=== PATIENT | male | born 1930 | race Caucasian/White ===

== ENCOUNTER → 2016-07-21 | Outpatient (CLI) | payer MEDICARE, OTHER ==
[~2016-07-21] MED LIST: ALEN70TA3 PO; CLOP75TA22 PO; DRON400T PO; DUTA0.5C PO; LEVO50TA PO; LISI-167 PO; MIRA25TA PO
== END | disposition home or self-care (01) ==
LOC: CFH 15:26
PROVIDERS: ATTEND Nurse Practitioner Primary Care
DX: M46.87 Other specified inflammatory spondylopathies, lumbosacral region (principal); M51.27 Other intervertebral disc displacement, lumbosacral region; I10 Essential (primary) hypertension; K21.9 Gastro-esophageal reflux disease without esophagitis; D64.9 Anemia, unspecified; E03.9 Hypothyroidism, unspecified; E55.9 Vitamin D deficiency, unspecified; R53.1 Weakness
CPT/HCPCS: 72131

== ENCOUNTER → 2016-12-05 | Outpatient (CLI) | payer MEDICARE, OTHER ==
[~2016-12-05] MED LIST changes: -CLOP75TA22 PO; +CLOP75TA52 PO
== END | disposition home or self-care (01) ==
LOC: CFH 15:04
PROVIDERS: ATTEND Nurse Practitioner Primary Care
DX: I65.23 Occlusion and stenosis of bilateral carotid arteries (principal); E03.9 Hypothyroidism, unspecified; I10 Essential (primary) hypertension; I48.2 Chronic atrial fibrillation; K21.9 Gastro-esophageal reflux disease without esophagitis
CPT/HCPCS: 93880

== ENCOUNTER → 2016-12-20 | Outpatient (CLI) | payer MEDICARE, OTHER ==
[~2016-12-20] MED LIST changes: +ASPI-496 PO; +DONE5TAB14 PO; +NITR1PAT11 TD
== END | disposition home or self-care (01) ==
LOC: WOUND 13:44
PROVIDERS: ATTEND Family Medicine
DX: S51.812A Laceration without foreign body of left forearm, initial encounter (principal); K21.9 Gastro-esophageal reflux disease without esophagitis; E03.9 Hypothyroidism, unspecified; E78.00 Pure hypercholesterolemia, unspecified; I48.2 Chronic atrial fibrillation; F03.90 Unspecified dementia, unspecified severity, without behavioral disturbance, psychotic disturbance, mood disturbance, and anxiety; I25.10 Atherosclerotic heart disease of native coronary artery without angina pectoris; Z95.1 Presence of aortocoronary bypass graft; Z90.49 Acquired absence of other specified parts of digestive tract; X58.XXXA Exposure to other specified factors, initial encounter; Y93.89 Activity, other specified; Y92.89 Other specified places as the place of occurrence of the external cause; Y99.8 Other external cause status
CPT/HCPCS: G0463; WOU0463

== ENCOUNTER → 2017-01-03 | Outpatient (CLI) | payer MEDICARE, OTHER | END | disposition home or self-care (01) | LOC: WOUND 13:00 | PROVIDERS: ATTEND Internal Medicine | DX: S51.812D Laceration without foreign body of left forearm, subsequent encounter (principal); S41.112D Laceration without foreign body of left upper arm, subsequent encounter; I25.10 Atherosclerotic heart disease of native coronary artery without angina pectoris; I10 Essential (primary) hypertension; I48.2 Chronic atrial fibrillation; K21.9 Gastro-esophageal reflux disease without esophagitis; E03.9 Hypothyroidism, unspecified; E78.00 Pure hypercholesterolemia, unspecified; F03.90 Unspecified dementia, unspecified severity, without behavioral disturbance, psychotic disturbance, mood disturbance, and anxiety; Z95.1 Presence of aortocoronary bypass graft; Z86.73 Personal history of transient ischemic attack (TIA), and cerebral infarction without residual deficits; Z90.49 Acquired absence of other specified parts of digestive tract; X58.XXXD Exposure to other specified factors, subsequent encounter | CPT/HCPCS: 97597; G0463; WOU0463 ==

== ENCOUNTER → 2017-03-19 | Outpatient (CLI) | payer MEDICARE, OTHER | END | disposition home or self-care (01) | LOC: CFH 15:26 | PROVIDERS: ATTEND Internal Medicine | DX: R63.4 Abnormal weight loss (principal); R17 Unspecified jaundice; R05 Cough; E59 Dietary selenium deficiency; E03.9 Hypothyroidism, unspecified; E61.1 Iron deficiency; D64.9 Anemia, unspecified; N40.0 Benign prostatic hyperplasia without lower urinary tract symptoms; N28.89 Other specified disorders of kidney and ureter; R53.83 Other fatigue; R41.82 Altered mental status, unspecified; R42 Dizziness and giddiness; I10 Essential (primary) hypertension; R01.1 Cardiac murmur, unspecified; I48.2 Chronic atrial fibrillation; H90.5 Unspecified sensorineural hearing loss; G47.09 Other insomnia; K21.9 Gastro-esophageal reflux disease without esophagitis; R79.9 Abnormal finding of blood chemistry, unspecified; G89.29 Other chronic pain; M62.81 Muscle weakness (generalized); F06.31 Mood disorder due to known physiological condition with depressive features; Z79.899 Other long term (current) drug therapy | CPT/HCPCS: 71250; 74176 ==